=== PATIENT | female | born 1945 | race Caucasian/White ===

== ENCOUNTER → 2023-10-04 12:31 | Outpatient (REF) | payer MEDICARE, SELFPAY | LOC: RCS 12:31 | PROVIDERS: ATTENDING PHYSICIAN Nurse Practitioner Acute Care; FAMILY PHYSICIAN Family Medicine; OTHER PHYSICIAN Internal Medicine Cardiovascular Disease; OTHER PHYSICIAN Radiology Radiation Oncology | DX: C34.11 Malignant neoplasm of upper lobe, right bronchus or lung (principal); I71.60 Thoracoabdominal aortic aneurysm, without rupture, unspecified; I70.0 Atherosclerosis of aorta | CPT/HCPCS: 93306 ==

== ENCOUNTER → 2023-10-05 14:52 | Outpatient (REF) | payer MEDICARE, SELFPAY | LOC: RAD 14:52 | PROVIDERS: ATTENDING PHYSICIAN Radiology Radiation Oncology; FAMILY PHYSICIAN Family Medicine; OTHER PHYSICIAN Internal Medicine Cardiovascular Disease; OTHER PHYSICIAN Nurse Practitioner Acute Care | DX: C34.11 Malignant neoplasm of upper lobe, right bronchus or lung (principal); I10 Essential (primary) hypertension; I71.60 Thoracoabdominal aortic aneurysm, without rupture, unspecified; I70.0 Atherosclerosis of aorta | CPT/HCPCS: 71275; 74174; Q9967 ==

== ENCOUNTER 2023-10-14 16:50 | Emergency (ER) | payer MEDICARE, SELFPAY ==
[2023-10-14 16:59] VITALS: BP 120/89
[2023-10-14 17:22] VITALS: BP 120/63
[2023-10-14 17:23] VITALS: BMI 28.3
--- NOTE | 2023-10-14 17:58 | ED.GENMED ---
History of Present Illness
General
Chief Complaint: Breathing Problem
Time Seen by Provider: 10/14/23 17:58
Travel History
Have you had any contact with someone who has COVID-19?: No
Do you have any symptoms of coronavirus? Fever > 100 degrees, chills, cough, shortness of breath, sore throat, loss of taste or smell, muscle aches, or headache?: No
History of Present Illness
History of Present Illness:
HPI: Patient presents due to shortness of breath. She has a history of COPD. She is overdue for taking a breathing treatment. Of note she fell about 3 weeks ago and broke right sixth rib. She fell again yesterday as she lost her balance on a
step at home again injuring the right chest. She saw primary care FI[facility] SUPERVISOR/PA who sent her here for further evaluation. She normally uses oxygen only at nighttime. She also has a history of lung malignancy
EXAM:
GENERAL: Appears chronically ill and generally weak
HEENT: Moist oral mucosa
CARDIOVASCULAR: No murmurs, normal heart rate, regular rhythm, No chest wall tenderness
PULMONARY: Minimal respiratory distress with mild conversational dyspnea, breath sounds are markedly decreased equally
ABDOMEN: Soft with no peritoneal signs, no tenderness
NEUROLOGIC: Excellent strength all extremities, no coordination deficits
PSYCHIATRIC: Appropriate mental status, normal insight and judgement
EXTREMITIES: Nontender, no edema, moves all extremities equally
SKIN: No rash, no lesions
TIME OF INITIAL ENCOUNTER: 6 PM
NUMBER AND COMPLEXITY OF PROBLEMS ADDRESSED AT THE ENCOUNTER
� Chronic conditions affecting care: COPD, lung cancer, thrombocytopenia, history of alcohol and drug abuse
� Acute Exacerbation and/or Progression of Chronic Illness: Acute exacerbation of COPD
� Differential Diagnosis includes: COPD exacerbation, pneumonia, worsening lung malignancy
AMOUNT AND/OR COMPLEXITY OF DATA TO BE REVIEWED AND ANALYZED
� I performed an independent evaluation of and my interpretation is:
EKG: Sinus 93, nonspecific ST abnormality
CT:
X-rays: I personally viewed the chest x-ray and see no new acute abnormality
Laboratory Studies: White count normal, hemoglobin normal, BNP, chemistries, troponin unremarkable
Other:
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 Normal sestamibi perfusion imaging 'complicated by
inferior soft tissue attenuation' noted 05/16/2023
� Clinical information was obtained by an independent historian: Spoke to the at bedside
� Prescriptions/Medications Considered but not given:
� Further testing considered but not performed:
RISK OF COMPLICATIONS AND/OR MORBIDITY OR MORTALITY OF PATIENT MANAGEMENT
� Social determinants of health affecting care: Lives at home
� Discussion with other providers:
� Escalation of care including admission/observation vs risk of discharge considered: The patient has markedly decreased breath sounds equally�she is given DuoNeb and steroids. She is more concerned about the breathing as
opposed to the fall. Chest x-ray shows no acute abnormality. The patient is currently on oxygen and does have oxygen at home. She does not appear to be in any significant distress but does have markedly decreased breath sounds. She will be
placed on steroids. I offered and considered admitting to the hospital if she has more high oxygen now with room air sats of 83 to 88% however there is no acute abnormality on the chest x-ray, she has oxygen at home, lab work is normal, and she
does not appear to be in any significant distress. I offered to keep her however the patient prefers to be managed as an outpatient which I feel is reasonable. She was given additional DuoNeb prior to discharge I did send a prescription for
steroids to her pharmacy
Past History
Past History
ED Past Medical History: CAD, COPD, HTN and Hypercholesterolemia
ED Past Surgical History: Cholecystectomy, Gynecological, Orthopedic and Other
Social History
Tobacco: Former smoker
Alcohol: None
Living: with family
Employment: Retired
Phy Exam
Physical Exam
Physical Exam:
See HPI
Scores
Heart Failure Risk
Heart Failure Risk Score: Not Applicable
Course
Orders/Labs/Results
Orders:
Orders
10/14/23 17:22
Electrocardiogram (*1) Urgent
Reason for Study: Shortness of Breath
EKG- Treatment ONCE
10/14/23 17:36
CR Chest Portable - 1 View Urgent
Comment:
Reason For Exam: SOB
Reason Study Needs to be Portable: Other
10/14/23 18:09
Ipratropium/Albuterol Sulfate [Duoneb] 3 ml INH R NOW ONE
MethylPREDNISolone PF [Solu-Medrol Pf] 125 mg IV NOW STA
10/14/23 18:18
Basic Metabolic Panel Urgent
Complete Blood Count/With Diff Urgent
Magnesium Urgent
NT-proBNP Urgent
Troponin I Urgent
10/14/23 19:05
Ipratropium/Albuterol Sulfate [Duoneb] 3 ml INH R NOW ONE
Abnormal Lab Results
10/14/23
18:18
RBC 3.89 L 10^6/uL
(4.20-5.40)
Hct 36.1 L %
(37.0-47.0)
MCH 31.1 H pg
(27.0-31.0)
Plt Count 104 L 10^3/uL
(130-400)
MPV 11.8 H fL
(7.4-10.4)
Absolute Lymphs (auto) 1.0 L 10^3/uL
(1.2-3.4)
Absolute Monos (auto) 0.8 H 10^3/uL
(0.1-0.6)
Lymphocytes % 13.9 L %
(20.5-51.1)
Monocytes % 11.1 H %
(1.7-9.3)
Carbon Dioxide 31 H mmol/L
(22-30)
Glucose 106 H mg/dl
(70-99)
10/14/23 18:18
10/14/23 18:18
Vital Signs
Initial and Last Documented VS:
Initial Vital Signs
Temp Pulse Resp BP Pulse Ox
98.1 F 90 18 120/89 85
10/14/23 16:59 10/14/23 16:59 10/14/23 16:59 10/14/23 16:59 10/14/23 16:59
Last Documented Vital Signs
Temp Pulse Resp BP Pulse Ox
98.1 F 104 20 116/62 91
10/14/23 16:59 10/14/23 19:04 10/14/23 19:04 10/14/23 18:00 10/14/23 19:04
*Critical Care Note
Total Time (30-74mins, 75-104mins- exclusive of procedures): Not Applicable
ED Attending Note
-
Portions of this chart may have been created with voice recognition software.� Occasional wrong word or��sound alike� substitutions may have occurred due to the inherent limitations of voice recognition software.
Discharge Plan
Departure
Patient Disposition: Home (Routine Discharge)
Date of Disposition: 10/14/23
Time of Disposition: 19:06
Patient with high blood pressure during this ER visit?: Yes
Discharge Problem:
COPD exacerbation
Prescriptions:
New
prednisone 50 mg tablet
50 mg PO DAILY Qty: 4 0RF
No Action
trazodone 50 MG tablet
50 mg PO HSPRN PRN (Reason: sleep)
fluticasone propionate 1 SPRAY spray,suspension
2 spray intranasal DAILYPRN PRN (Reason: allergies)
ipratropium bromide 0.5 MG/2.5 ML solution
0.5 mg inhalation R QID
rosuvastatin 5 MG tablet
5 mg PO DAILY
budesonide 0.5 MG/2 ML suspension for nebulization
0.5 mg inhalation R BID
PreserVision AREDS-2 1 EACH capsule
1 ea PO BID Qty: 0 0RF
Rx Instructions:
resume 1 week
sertraline 100 MG tablet
150 mg PO DAILY
cyanocobalamin (vitamin B-12) 1,000 MCG tablet
1,000 mcg PO DAILY
aspirin 81 MG tablet,chewable
81 mg PO DAILY
metoprolol succinate 25 MG tablet extended release 24 hr
37.5 mg PO HS
Patient Comments:
1.5 tablets
multivitamin with folic acid [Tab-A-Lucinda] 1 TABLET tablet
1 tab PO DAILY
Activity Restrictions/Additional Instructions:
Since your oxygen levels are low here, I recommend that you use the oxygen more frequently at home including in the daytime and not only at nighttime. Your basic lab work including cardiac numbers are normal. Chest x-ray shows no acute
abnormality. I suspect your symptoms are related to a COPD exacerbation. I recommend resuming steroids�I sent next dose of steroids to your pharmacy. Continue using DuoNebs at home. Return here if worse.
Interventions
Interventions:
*Risk Screen - Suicide Last Done: 10/14/23 17:23
*General Assessment Last Done: 10/14/23 17:23
*Neglect/Abuse Screening Last Done: 10/14/23 17:20
ED- Fall Risk Assessment Last Done: 10/14/23 17:25
*ED COVID-19 Vaccine History Last Done: 10/14/23 17:23
ED- Cardiac Assessment Last Done: 10/14/23 17:23
ED- Pulmonary Assessment Last Done: 10/14/23 17:23
Discharge Date and Time
Print Language: NIUEAN
[2023-10-14 18:00] VITALS: BP 116/62
[2023-10-14] MEDS: DUONEB 3 ML INH ×2 (18:15→19:13)
[2023-10-14] MEDS: SOLU-MEDROL PF 125 MG IV (18:16)
[2023-10-14 18:37] LABS: % Basophils 0.4 % (0-2); % Eosinophils 1.8 % (0-6); % Immature Granulocytes 0.4 % (0-0.5); % Lymphocytes 13.9 % (20.5-51.1); % Monocytes 11.1 % (1.7-9.3); % Neutrophils 72.4 % (42.2-75.2); Absolute Eosinophils 0.1 10^3/uL (0-0.7); Absolute Monocytes 0.8 10^3/uL (0.1-0.6); Absolute Neutrophils 5.2 10^3/uL (1.4-6.5); Hematocrit 36.1 % (37.0-47.0); Hemoglobin 12.1 g/dL (12.0-16.0); Mean Corp Hgb Conc. 33.5 g/dL (33.0-37.0); Mean Corpuscular Hgb 31.1 pg (27.0-31.0); Mean Corpuscular Volume 92.8 fL (81.0-99.0); Mean Platelet Volume 11.8 fL (7.4-10.4); Nucleated Red Blood Cells % 0 %; Platelet Count 104 10^3/uL (130-400); Red Blood Cell Count 3.89 10^6/uL (4.20-5.40); White Blood Cell Count 7.2 10^3/uL (4.8-10.8)
[2023-10-14 18:52] LABS: Blood Urea Nitrogen 17 mg/dl (7-17); Carbon Dioxide 31 mmol/L (22-30); Chloride 98 mmol/L (98-107); Estimated Creatinine Clearance 79 ml/min; Glucose 106 mg/dl (70-99); Potassium 4.3 mmol/L (3.5-5.1); Sodium 137 mmol/L (135-145); eGFR > 60.00
[2023-10-14 18:55] LABS: NT-proBNP 272 pg/ml; Troponin I < 0.012 ng/ml
== END 2023-10-14 19:37 | disposition home or self-care (01) ==
LOC: EMR 16:50
PROVIDERS: EMERGENCY PHYSICIAN Emergency Medicine; FAMILY PHYSICIAN Family Medicine
DX: J44.1 Chronic obstructive pulmonary disease with (acute) exacerbation (principal); I10 Essential (primary) hypertension
CPT/HCPCS: 99285; 96374; 94640; 71045; 80048; 83735; 83880; 84484; 85025; 93005

== ENCOUNTER → 2024-03-09 13:45 | Outpatient (REF) | payer MEDICARE, SELFPAY | LOC: WDC 13:45 | PROVIDERS: ATTENDING PHYSICIAN Nurse Practitioner Family | DX: Z12.31 Encounter for screening mammogram for malignant neoplasm of breast (principal) | CPT/HCPCS: 77063; 77067 ==

== ENCOUNTER 2024-04-09 06:33 | Day surgery (SDC) | payer MEDICARE, SELFPAY ==
[2024-03-29 10:54] VITALS: BMI 28.7
[2024-03-29 11:18] LABS: Hematocrit 39.3 % (37.0-47.0); Hemoglobin 12.8 g/dL (12.0-16.0); Mean Corp Hgb Conc. 32.6 g/dL (33.0-37.0); Mean Corpuscular Hgb 31.6 pg (27.0-31.0); Platelet Count 103 10^3/uL (130-400); Red Blood Cell Count 4.05 10^6/uL (4.20-5.40); Red Cell Dist. Width 13.4 % (11.5-14.5); White Blood Cell Count 4.8 10^3/uL (4.8-10.8)
[2024-03-29 11:31] LABS: INR 1.07; PT 13.9 Sec (11.4-14.6)
[2024-03-29 11:32] LABS: APTT 27.5 Sec (23.4-35.0)
[2024-03-29 11:53] LABS: Blood Urea Nitrogen 17 mg/dl (7-17); Calcium 9.7 mg/dl (8.4-10.2); Carbon Dioxide 33 mmol/L (22-30); Chloride 101 mmol/L (98-107); Estimated Creatinine Clearance 65 ml/min; Glucose 96 mg/dl (70-99); Potassium 4.1 mmol/L (3.5-5.1); Sodium 144 mmol/L (135-145); eGFR > 60.00
[2024-04-09 13:53] VITALS: BMI 28.7
[2024-04-09 13:57] VITALS: BP 102/55
[2024-04-09] MEDS: NORMOSOL-R/PLASMALYTE-A 1000 IV (14:03)
[2024-04-09 17:30] VITALS: BP 102/55; BP 109/74
[2024-04-09 17:31] VITALS: BP 109/74
[2024-04-09 17:45] VITALS: BP 120/95
[2024-04-09 18:15] VITALS: BP 114/91
--- NOTE | 2024-04-09 18:32 | SUR.PHASEI ---
patient in pacu post op dental work upper front of mouth. unable to keep ice to area and allow patient to breathe. COPD , uses O2 at home, talks continuously. vss. attempt to wean O2. sats intermittently drop to 89 - 90%. Reviewed to Dr Conti
- okay to send to [facility] with O2 and patient encouraged to use O2 at home this marvel. Per surgeon - patient is to leave dentures out, as no way to secure now. Patient able to teach back -
[2024-04-09 18:45] VITALS: BP 110/76
== END 2024-04-09 19:07 | disposition home or self-care (01) ==
LOC: SDS 06:33
PROVIDERS: ATTENDING PHYSICIAN Dentist Oral and Maxillofacial Surgery; FAMILY PHYSICIAN Family Medicine; OTHER PHYSICIAN Internal Medicine Cardiovascular Disease
PROC: 0CDXXZ1 Extraction of Lower Tooth, Multiple, External Approach (ICD-10-PCS; 2024-04-09)
PROC: 0CDWXZ1 Extraction of Upper Tooth, Multiple, External Approach (ICD-10-PCS; 2024-04-09)
PROC: 0NBR0ZZ Excision of Maxilla, Open Approach (ICD-10-PCS; 2024-04-09)
DX: K02.9 Dental caries, unspecified (principal)
CPT/HCPCS: 41874 ×2; 41899; 36415; 71046; 80048; 85027; 85610; 85730; 93005

== ENCOUNTER → 2024-06-01 13:04 | Outpatient (REF) | payer MEDICARE, SELFPAY | LOC: RAD 13:04 | PROVIDERS: ATTENDING PHYSICIAN Nurse Practitioner; FAMILY PHYSICIAN Family Medicine | DX: S09.90XS Unspecified injury of head, sequela (principal); R42 Dizziness and giddiness | CPT/HCPCS: 70450 ==

== ENCOUNTER → 2024-06-27 12:36 | Outpatient (REF) | payer MEDICARE, SELFPAY | LOC: RAD 12:36 | PROVIDERS: ATTENDING PHYSICIAN Family Medicine | DX: M79.671 Pain in right foot (principal) | CPT/HCPCS: 73630 ==

== ENCOUNTER → 2024-08-13 09:22 | Outpatient (REF) | payer MEDICARE, SELFPAY | LOC: HWRAD 09:22 | PROVIDERS: ATTENDING PHYSICIAN Internal Medicine; FAMILY PHYSICIAN Family Medicine | DX: F10.10 Alcohol abuse, uncomplicated (principal) | CPT/HCPCS: 76700 ==

== ENCOUNTER 2024-08-15 13:31 | Outpatient (RCR) | payer MEDICARE, SELFPAY | END 2024-08-15 23:59 | disposition home or self-care (01) | LOC: RPT 13:31 | PROVIDERS: ATTENDING PHYSICIAN Nurse Practitioner; FAMILY PHYSICIAN Family Medicine | DX: S09.90XD Unspecified injury of head, subsequent encounter (principal); X58.XXXD Exposure to other specified factors, subsequent encounter | CPT/HCPCS: 97162; 97530 ==

== ENCOUNTER 2024-08-24 10:21 | Outpatient (RCR) | payer MEDICARE, SELFPAY | END 2024-08-24 23:59 | disposition home or self-care (01) | LOC: RPT 10:21 | PROVIDERS: ATTENDING PHYSICIAN Student in an Organized Health Care Education/Training Program; FAMILY PHYSICIAN Family Medicine | DX: M77.9 Enthesopathy, unspecified (principal); M79.671 Pain in right foot; Z73.6 Limitation of activities due to disability; R26.89 Other abnormalities of gait and mobility; R26.2 Difficulty in walking, not elsewhere classified; M79.604 Pain in right leg | CPT/HCPCS: 97110; 97116; 97162; 97530 ==

== ENCOUNTER 2024-08-24 13:03 | Emergency (ER) | payer MEDICARE, SELFPAY ==
[2024-08-24 13:06] VITALS: BP 101/66
--- NOTE | 2024-08-24 15:08 | ED.GENMED ---
History of Present Illness
General
Chief Complaint: Fall
Source: patient
Exam Limitations: none
Time Seen by Provider: 08/24/24 13:37
Nursing documentation reviewed up to this point in time: agreed with
History of Present Illness
History of Present Illness:
78-year-old female presents emergency department after tripping and falling, and hitting her head on a curb. She also landed on her right knee. She denies loss of consciousness. She takes aspirin.
Past History
Past History
ED Past Medical History: CAD, COPD, HTN and Hypercholesterolemia
ED Past Surgical History: Cholecystectomy, Gynecological, Orthopedic and Other
Social History
Tobacco: Former smoker
Alcohol: None
Living: with family
Employment: Retired
Review of Systems
Review of Systems
Allergies reviewed?: Yes
All Other Systems: Not applicable
Constitutional: Reports no symptoms
EENT: Reports no symptoms
Respiratory: Reports no symptoms
Cardiac: Reports no symptoms
ABD/GI: Reports no symptoms
: Reports no symptoms
Musculoskeletal: Reports joint pain (Right knee pain)
Skin: Reports no symptoms
Neurological: Reports no symptoms
Endocrine: Reports no symptoms
Hematologic/Lymphatic: Reports no symptoms
Psychiatric: Reports no symptoms
Phy Exam
Physical Exam
Physical Exam:
Physical Exam
General: no apparent distress, not acutely ill
Neck: supple. no meningeal signs. normal posterior pharynx
Heart: s1/s2 regular rate and rhythm, no murmur. equal radial
pulses.
HEENT: Pupils equal round reactive to light, EOMI, contusion forehead
Lungs: no acute respiratory distress. clear bilaterally
Abdomen: normal bowel sounds. not tender. no CVAT
Neuro: alert and oriented. no focal neurological deficits cranial nerves II through XII intact
Skin: no rash
Psychiatric: well kept. interactive and cooperative
Extremities: no edema. no calf tenderness. negative homans. good distal pulses, abrasion right knee, mildly tender patella
Course
Orders/Labs/Results
Orders:
Orders
08/24/24 13:11
CT Head W/o Iv Contrast Urgent
Comment:
Reason For Exam: fall
08/24/24 13:55
Knee, Right 4 or More Views [CR Knee- Right 4 Or More View*] Urgent
Comment:
Reason For Exam: right knee pain after fall
Vital Signs
Initial and Last Documented VS:
Initial Vital Signs
Temp Pulse Resp BP Pulse Ox
98.5 F 85 18 101/66 94
08/24/24 13:06 08/24/24 13:06 08/24/24 13:06 08/24/24 13:06 08/24/24 13:06
Last Documented Vital Signs
Temp Pulse Resp BP Pulse Ox
98.5 F 85 18 101/66 94
08/24/24 13:06 08/24/24 13:06 08/24/24 13:06 08/24/24 13:06 08/24/24 13:06
MDM/Problems Addressed
Differential Diagnosis Includes:
Intracranial hemorrhage, knee fracture
MDM/Problems Addressed:
78-year-old female with fall, head contusion. Right knee abrasion. No signs of fracture or intracranial hemorrhage. Stable for discharge.
Chronic conditions affecting care: CAD and COPD
Acute Exacerbation and/or Progression of Chronic Illness: CAD and COPD
*Radiology
Radiology exam reviewed: radiology read reviewed (CT head no acute findings, right knee x-ray no acute findings)
*Pulse Oximetry
Patient hypoxic: no
*Critical Care Note
Total Time (30-74mins, 75-104mins- exclusive of procedures): Not Applicable
Patient Management
Social determinants of health affecting care: Living situation and Strong social support
Escalation/DeEscalation of care consider admission/obs:
Admission not indicated
ED Attending Note
-
Portions of this chart may have been created with voice recognition software.� Occasional wrong word or��sound alike� substitutions may have occurred due to the inherent limitations of voice recognition software.
Discharge Plan
Departure
Patient Disposition: Home (Routine Discharge)
Date of Disposition: 08/24/24
Time of Disposition: 15:15
Patient with high blood pressure during this ER visit?: No
Condition: Good
Discharge Problem:
Contusion of head, Abrasion of knee, right, Fall
Instructions: Head Injury in Adults (DC), Contusion (DC), Preventing falls in adults, Skin Abrasions (DC)
Prescriptions:
No Action
trazodone 50 MG tablet
50 mg PO HS
fluticasone propionate 1 SPRAY spray,suspension
2 spray intranasal DAILYPRN PRN (Reason: allergies)
ipratropium bromide 0.5 MG/2.5 ML solution
0.5 mg inhalation QID
rosuvastatin 5 MG tablet
5 mg PO DAILY
budesonide 0.5 MG/2 ML suspension for nebulization
0.5 mg inhalation BID
PreserVision AREDS-2 1 EACH capsule
1 ea PO BID Qty: 0 0RF
Rx Instructions:
resume 1 week
sertraline 100 MG tablet
150 mg PO DAILY
aspirin 81 MG tablet,chewable
81 mg PO DAILY
metoprolol succinate 25 MG tablet extended release 24 hr
37.5 mg PO HS
Patient Comments:
1.5 tablets
cyanocobalamin (vitamin B-12) [Vitamin B-12] 1,000 mcg Tablet
1,000 mcg PO DAILY
acetaminophen [Tylenol Extra Strength] 500 mg Capsule
500 mg PO Q6H PRN (Reason: pain)
One-A-Day Women's 50 Plus
1 cap PO DAILY
Oxygen 2.5l
2.5 l inhalation HS
Referrals:
Destiny Baires MD [Family Provider] - Call in 1-3 days for appt
Interventions
Interventions:
*Risk Screen - Suicide Last Done: 08/24/24 13:06
*General Assessment Last Done: 08/24/24 13:06
*Neglect/Abuse Screening Last Done: 08/24/24 13:06
ED-Musculoskeletal Assessment Last Done: 08/24/24 14:25
ED- Neurological Assessment Last Done: 08/24/24 14:25
ED-Skin Assessment Last Done: 08/24/24 14:25
Discharge Date and Time
Print Language: CAMBODIAN
== END 2024-08-24 15:40 | disposition home or self-care (01) ==
LOC: EMR 13:03
PROVIDERS: EMERGENCY PHYSICIAN Emergency Medicine; FAMILY PHYSICIAN Family Medicine
DX: S00.93XA Contusion of unspecified part of head, initial encounter (principal); S80.211A Abrasion, right knee, initial encounter; W01.198A Fall on same level from slipping, tripping and stumbling with subsequent striking against other object, initial encounter; E78.00 Pure hypercholesterolemia, unspecified; I10 Essential (primary) hypertension; I25.10 Atherosclerotic heart disease of native coronary artery without angina pectoris; J44.9 Chronic obstructive pulmonary disease, unspecified; Z79.82 Long term (current) use of aspirin; Z87.891 Personal history of nicotine dependence
CPT/HCPCS: 99284; 70450; 73564

== ENCOUNTER → 2024-09-14 08:29 | Outpatient (REF) | payer MEDICARE, SELFPAY ==
[2024-09-14 09:53] LABS: Blood Urea Nitrogen 17 mg/dl (7-17); Calcium 9.8 mg/dl (8.4-10.2); Carbon Dioxide 31 mmol/L (22-30); Chloride 102 mmol/L (98-107); Glucose 98 mg/dl (70-99); Sodium 141 mmol/L (135-145); eGFR > 60.00
== END ==
LOC: REG 08:29
PROVIDERS: ATTENDING PHYSICIAN Surgery Vascular Surgery; FAMILY PHYSICIAN Family Medicine
DX: I71.40 Abdominal aortic aneurysm, without rupture, unspecified (principal)
CPT/HCPCS: 36415; 80048

== ENCOUNTER → 2024-09-24 11:15 | Outpatient (REF) | payer MEDICARE, SELFPAY | LOC: RAD 11:15 | PROVIDERS: ATTENDING PHYSICIAN Surgery Vascular Surgery; FAMILY PHYSICIAN Family Medicine; OTHER PHYSICIAN Internal Medicine Cardiovascular Disease | DX: I71.40 Abdominal aortic aneurysm, without rupture, unspecified (principal); I70.0 Atherosclerosis of aorta; I71.20 Thoracic aortic aneurysm, without rupture, unspecified | CPT/HCPCS: 71275; 74174; Q9967 ==

== ENCOUNTER 2024-10-15 13:17 | Outpatient (RCR) | payer MEDICARE, SELFPAY | END 2024-10-15 23:59 | disposition home or self-care (01) | LOC: RPT 13:17 | PROVIDERS: ATTENDING PHYSICIAN Student in an Organized Health Care Education/Training Program; FAMILY PHYSICIAN Family Medicine | DX: M77.9 Enthesopathy, unspecified (principal); M79.671 Pain in right foot; Z73.6 Limitation of activities due to disability; R26.89 Other abnormalities of gait and mobility; R26.2 Difficulty in walking, not elsewhere classified; M79.604 Pain in right leg; M62.81 Muscle weakness (generalized); R29.6 Repeated falls | CPT/HCPCS: 97110; 97112 ==

== ENCOUNTER 2024-11-02 12:50 | Outpatient (RCR) | payer MEDICARE, SELFPAY | END 2024-11-02 23:59 | disposition home or self-care (01) | LOC: RPT 12:50 | PROVIDERS: ATTENDING PHYSICIAN Student in an Organized Health Care Education/Training Program; FAMILY PHYSICIAN Family Medicine | DX: M77.9 Enthesopathy, unspecified (principal); M79.671 Pain in right foot; Z73.6 Limitation of activities due to disability; R26.89 Other abnormalities of gait and mobility; R26.2 Difficulty in walking, not elsewhere classified; M79.604 Pain in right leg; R29.6 Repeated falls; M62.81 Muscle weakness (generalized) | CPT/HCPCS: 97110; 97112 ==

== ENCOUNTER 2024-12-06 12:47 | Outpatient (RCR) | payer MEDICARE, SELFPAY | END 2024-12-06 23:59 | disposition home or self-care (01) | LOC: RPT 12:47 | PROVIDERS: ATTENDING PHYSICIAN Student in an Organized Health Care Education/Training Program; FAMILY PHYSICIAN Family Medicine | DX: M77.9 Enthesopathy, unspecified (principal); M79.671 Pain in right foot; Z73.6 Limitation of activities due to disability; R26.89 Other abnormalities of gait and mobility; R26.2 Difficulty in walking, not elsewhere classified; M79.604 Pain in right leg; M62.81 Muscle weakness (generalized); R29.6 Repeated falls | CPT/HCPCS: 97110; 97112; 97530 ==

== ENCOUNTER 2024-12-12 06:11 | Day surgery (SDC) | payer MEDICARE, SELFPAY ==
[2024-12-12 08:02] VITALS: BMI 23.9
[2024-12-12 08:03] VITALS: BMI 23.9
[2024-12-12 08:19] VITALS: BP 136/73
[2024-12-12 10:53] VITALS: BP 108/66
[2024-12-12 11:01] VITALS: BP 111/69
[2024-12-12 11:11] VITALS: BP 116/49
== END 2024-12-12 11:25 | disposition home or self-care (01) ==
LOC: GI 06:11
PROVIDERS: ATTENDING PHYSICIAN Internal Medicine
DX: Z12.11 Encounter for screening for malignant neoplasm of colon (principal); D12.0 Benign neoplasm of cecum; D12.2 Benign neoplasm of ascending colon; D12.5 Benign neoplasm of sigmoid colon; K63.89 Other specified diseases of intestine; K57.30 Diverticulosis of large intestine without perforation or abscess without bleeding; K62.1 Rectal polyp; K92.1 Melena; K44.9 Diaphragmatic hernia without obstruction or gangrene; K31.7 Polyp of stomach and duodenum; K31.811 Angiodysplasia of stomach and duodenum with bleeding; K22.70 Barrett's esophagus without dysplasia; K29.70 Gastritis, unspecified, without bleeding; D13.2 Benign neoplasm of duodenum; K22.89 Other specified disease of esophagus; K31.89 Other diseases of stomach and duodenum; Z86.0101 Personal history of adenomatous and serrated colon polyps
CPT/HCPCS: 45385; 45380; 43239; 88305; 88342

== ENCOUNTER 2025-01-14 13:20 | Outpatient (RCR) | payer MEDICARE, SELFPAY | END 2025-01-14 23:59 | disposition home or self-care (01) | LOC: RPT 13:20 | PROVIDERS: ATTENDING PHYSICIAN Student in an Organized Health Care Education/Training Program; FAMILY PHYSICIAN Family Medicine | DX: M77.9 Enthesopathy, unspecified (principal); M79.671 Pain in right foot; Z73.6 Limitation of activities due to disability; R26.89 Other abnormalities of gait and mobility; R26.2 Difficulty in walking, not elsewhere classified; M79.604 Pain in right leg; M62.81 Muscle weakness (generalized); R29.6 Repeated falls | CPT/HCPCS: 97110; 97112; 97116; 97530 ==

== ENCOUNTER 2025-02-07 12:15 | Outpatient (RCR) | payer MEDICARE, SELFPAY | END 2025-02-07 23:59 | disposition home or self-care (01) | LOC: RPT 12:15 | PROVIDERS: ATTENDING PHYSICIAN Student in an Organized Health Care Education/Training Program; FAMILY PHYSICIAN Family Medicine | DX: M77.9 Enthesopathy, unspecified (principal); M79.671 Pain in right foot; Z73.6 Limitation of activities due to disability; R26.89 Other abnormalities of gait and mobility; R26.2 Difficulty in walking, not elsewhere classified; M79.604 Pain in right leg; M62.81 Muscle weakness (generalized); R29.6 Repeated falls | CPT/HCPCS: 97110; 97116; 97530 ==

== ENCOUNTER → 2025-02-21 14:30 | Outpatient (REF) | payer MEDICARE, SELFPAY | LOC: MRI 14:30 | PROVIDERS: ATTENDING PHYSICIAN Internal Medicine; FAMILY PHYSICIAN Family Medicine | DX: F10.20 Alcohol dependence, uncomplicated (principal); K76.0 Fatty (change of) liver, not elsewhere classified; D69.6 Thrombocytopenia, unspecified | CPT/HCPCS: 74183; 76391; A9575 ==

== ENCOUNTER 2025-03-06 13:08 | Outpatient (RCR) | payer MEDICARE, SELFPAY | END 2025-03-06 23:59 | disposition home or self-care (01) | LOC: RPT 13:08 | PROVIDERS: ATTENDING PHYSICIAN Student in an Organized Health Care Education/Training Program; FAMILY PHYSICIAN Family Medicine | DX: M77.9 Enthesopathy, unspecified (principal); M79.671 Pain in right foot; Z73.6 Limitation of activities due to disability; R26.89 Other abnormalities of gait and mobility; R26.2 Difficulty in walking, not elsewhere classified; M79.604 Pain in right leg; M62.81 Muscle weakness (generalized); R29.6 Repeated falls | CPT/HCPCS: 97110; 97112; 97530 ==

== ENCOUNTER → 2025-03-12 12:09 | Outpatient (REF) | payer MEDICARE, SELFPAY | LOC: WDC 12:09 | PROVIDERS: ATTENDING PHYSICIAN Family Medicine | DX: Z12.31 Encounter for screening mammogram for malignant neoplasm of breast (principal) | CPT/HCPCS: 77063; 77067 ==

== ENCOUNTER 2025-03-29 06:05 | Day surgery (SDC) | payer MEDICARE, SELFPAY ==
[2025-03-29 07:17] VITALS: BMI 26.7
[2025-03-29 07:18] VITALS: BP 142/80
[2025-03-29 08:26] VITALS: BP 103/58
[2025-03-29 08:30] VITALS: BP 101/49
[2025-03-29 08:45] VITALS: BP 118/64
[2025-03-29 08:55] VITALS: BP 117/60
[2025-03-29 09:00] VITALS: BP 117/60
== END 2025-03-29 09:00 | disposition home or self-care (01) ==
LOC: SDS 06:05
PROVIDERS: ATTENDING PHYSICIAN Internal Medicine
DX: D13.2 Benign neoplasm of duodenum (principal); K31.89 Other diseases of stomach and duodenum; K44.9 Diaphragmatic hernia without obstruction or gangrene
CPT/HCPCS: 43239; 88305; 88342

== ENCOUNTER 2025-04-15 14:29 | Outpatient (RCR) | payer MEDICARE, SELFPAY | END 2025-04-15 23:59 | disposition home or self-care (01) | LOC: ROT 14:29 | PROVIDERS: ATTENDING PHYSICIAN Nurse Practitioner; FAMILY PHYSICIAN Family Medicine | DX: F10.27 Alcohol dependence with alcohol-induced persisting dementia (principal); Z73.6 Limitation of activities due to disability; R26.89 Other abnormalities of gait and mobility | CPT/HCPCS: 97167; 97530; 97535 ==

== ENCOUNTER 2025-05-17 08:38 | Outpatient (RCR) | payer MEDICARE, SELFPAY | END 2025-05-17 23:59 | disposition home or self-care (01) | LOC: ROT 08:38 | PROVIDERS: ATTENDING PHYSICIAN Nurse Practitioner; FAMILY PHYSICIAN Family Medicine | DX: F10.27 Alcohol dependence with alcohol-induced persisting dementia (principal); Z73.6 Limitation of activities due to disability; R26.89 Other abnormalities of gait and mobility | CPT/HCPCS: 97530; 97535 ==

== ENCOUNTER → 2025-05-24 09:39 | Outpatient (REF) | payer MEDICARE, SELFPAY ==
[2025-05-24 11:40] LABS: Blood Urea Nitrogen 17 mg/dl (7-17); Calcium 9.2 mg/dl (8.4-10.2); Carbon Dioxide 33 mmol/L (22-30); Chloride 101 mmol/L (98-107); Glucose 99 mg/dl (70-99); Potassium 4.7 mmol/L (3.5-5.1); Sodium 140 mmol/L (135-145); eGFR > 60.00
== END ==
LOC: REG 09:39
PROVIDERS: ATTENDING PHYSICIAN Surgery Vascular Surgery; FAMILY PHYSICIAN Family Medicine; REFERRING PHYSICIAN Internal Medicine Cardiovascular Disease
DX: I71.40 Abdominal aortic aneurysm, without rupture, unspecified (principal)
CPT/HCPCS: 36415; 80048

== ENCOUNTER → 2025-05-28 14:09 | Outpatient (REF) | payer MEDICARE, SELFPAY | LOC: HWRAD 14:09 | PROVIDERS: ATTENDING PHYSICIAN Nurse Practitioner; FAMILY PHYSICIAN Family Medicine | DX: S09.90XD Unspecified injury of head, subsequent encounter (principal) | CPT/HCPCS: 70450 ==

== ENCOUNTER 2025-06-03 13:51 | Outpatient (RCR) | payer MEDICARE, SELFPAY | END 2025-06-03 23:59 | disposition home or self-care (01) | LOC: ROT 13:51 | PROVIDERS: ATTENDING PHYSICIAN Nurse Practitioner; FAMILY PHYSICIAN Family Medicine | DX: F10.27 Alcohol dependence with alcohol-induced persisting dementia (principal); Z73.6 Limitation of activities due to disability; R26.89 Other abnormalities of gait and mobility | CPT/HCPCS: 97530; 97535 ==

== ENCOUNTER 2025-06-16 07:17 | Emergency (ER) | payer MEDICARE, SELFPAY ==
[2025-06-16] VITALS (8 sets, daily range): BP systolic 64–146; BP diastolic 43–110
[2025-06-16 07:44] LABS: Hematocrit 38.1 % (37.0-47.0); Hemoglobin 12.0 g/dL (12.0-16.0); Mean Corp Hgb Conc. 31.5 g/dL (33.0-37.0); Mean Corpuscular Volume 96.0 fL (81.0-99.0); Nucleated Red Blood Cells % 0 %; Platelet Count 101 10^3/uL (130-400); Red Cell Dist. Width 13.2 % (11.5-14.5)
[2025-06-16 08:03] LABS: ALT (SGPT) 22 U/L (0-35); AST (SGOT) 26 U/L (14-36); Albumin 4.1 g/dl (3.5-5.0); Alkaline Phosphatase 89 U/L (38-126); Blood Urea Nitrogen 13 mg/dl (7-17); Calcium 8.6 mg/dl (8.4-10.2); Carbon Dioxide 33 mmol/L (22-30); Chloride 102 mmol/L (98-107); Glucose 109 mg/dl (70-99); Potassium 3.7 mmol/L (3.5-5.1); Sodium 137 mmol/L (135-145); Total Protein 6.6 g/dl (6.3-8.2); eGFR > 60.00
--- NOTE | 2025-06-16 09:28 | ED.GENMED ---
History of Present Illness
General
Chief Complaint: Fall
Source: patient and spouse
Exam Limitations: none
Time Seen by Provider: 06/16/25 07:47
Nursing documentation reviewed up to this point in time: agreed with
History of Present Illness
History of Present Illness:
The patient is a 79-year-old female with a past medical history of coronary artery disease and COPD who reports severe right sided lower rib pain after she slipped and fell in the bathroom yesterday. Patient reports that she thinks she hit her
right rib cage against the bathtub. She reports she has not hit her head. She denies headache and neck pain. She denies dizziness. Patient reports increased work of breathing since the fall. Patient's reports that the patient does use
oxygen, but generally just at nighttime. Patient reports she has some mild mid to lower right sided back pain from the fall as well. reports multiple falls over the last 2 weeks. Patient is not on any blood thinners. Patient denies
pelvic and hip pain.
Past History
Past History
ED Past Medical History: CAD, COPD, HTN and Hypercholesterolemia
ED Past Surgical History: Cholecystectomy, Gynecological, Orthopedic and Other
Social History
Tobacco: Former smoker
Alcohol: Chronic alcoholic
Drug: None
Living: with family
Employment: Retired
Family History
Family History: Other
Review of Systems
Review of Systems
Allergies reviewed?: Yes
All Other Systems: ROS reviewed and negative except as documented in HPI and ROS
Constitutional: Reports no symptoms
EENT: Reports no symptoms
Respiratory: Reports trouble breathing
Cardiac: Reports chest pain (Right-sided chest wall pain)
ABD/GI: Reports no symptoms
: Reports no symptoms
Musculoskeletal: Reports muscle stiffness and back pain
Skin: Reports no symptoms
Neurological: Reports no symptoms
Endocrine: Reports no symptoms
Hematologic/Lymphatic: Reports no symptoms
Psychiatric: Reports no symptoms
Phy Exam
Physical Exam
Physical Exam:
Physical Exam
General: Patient lying on left side, holding right rib cage. Looks slightly uncomfortable. Atraumatic appearing face and head
Neck: supple. Nontender C-spine
Heart: s1/s2 regular rate and rhythm, diffuse right chest wall tenderness. No specific vertebral spine tenderness
Lungs: no acute respiratory distress, diffuse wheezing
Abdomen: Questionable right upper quadrant tenderness. Abdomen is soft and nondistended. No rebound or guarding.
Neuro: alert and oriented. no focal neurological deficits
Skin: no rash
Psychiatric: well kept. interactive and cooperative
Extremities: Nontender upper and lower extremities. Nontender pelvis and hips.
Course
Orders/Labs/Results
Orders:
Orders
06/16/25 07:25
Ribs, Right 3 View W/PA Chest [CR Ribs-right 3 Vw W/pa Chest*] Urgent
Comment:
Reason For Exam: fall, right rib pain
06/16/25 07:33
Complete Blood Count/With Diff Urgent
Comprehensive Metabolic Panel Urgent
06/16/25 09:25
Ipratropium/Albuterol Sulfate [Duoneb] 3 ml INH R NOW ONE
06/16/25 09:26
Morphine Sulfate 4 mg IV NOW STA
Ondansetron Injectable [Zofran] 4 mg IV NOW STA
06/16/25 09:27
CT Pe/abd/pel W Urgent
Reason For Exam: SOB, RUQ pain, s/p fall
06/16/25 09:29
0.9% Sodium Chloride 500 ml [Nss] 500 ml IV BOLUS
06/16/25 12:02
Ipratropium/Albuterol Sulfate [Duoneb] 3 ml INH R NOW ONE
Abnormal Lab Results
06/16/25
07:33
RBC 3.97 L 10^6/uL
(4.20-5.40)
MCHC 31.5 L g/dL
(33.0-37.0)
Plt Count 101 L 10^3/uL
(130-400)
MPV 11.2 H fL
(7.4-10.4)
Absolute Lymphs (auto) 0.8 L 10^3/uL
(1.2-3.4)
Lymphocytes % 15.7 L %
(20.5-51.1)
Carbon Dioxide 33 H mmol/L
(22-30)
Glucose 109 H mg/dl
(70-99)
06/16/25 07:33
06/16/25 07:33
Vital Signs
Initial and Last Documented VS:
Initial Vital Signs
Temp Pulse Resp BP Pulse Ox
98.2 F 87 18 146/110 96
06/16/25 07:23 06/16/25 07:23 06/16/25 07:23 06/16/25 07:23 06/16/25 07:23
Last Documented Vital Signs
Temp Pulse Resp BP Pulse Ox
98.2 F 84 24 125/67 93
06/16/25 07:23 06/16/25 08:00 06/16/25 08:00 06/16/25 08:00 06/16/25 09:28
MDM/Problems Addressed
Differential Diagnosis Includes:
Closed rib fractures, pulmonary contusion, pneumothorax
MDM/Problems Addressed:
Patient presents with acute right sided rib cage pain and complaints of acute shortness of breath
Chronic conditions affecting care:
COPD
Acute Exacerbation and/or Progression of Chronic Illness:
Patient likely has acute exacerbation of COPD
Acute Exacerbation and/or Progression of Chronic Illness: COPD
*Radiology
Radiology exam reviewed: radiology read reviewed
*Pulse Oximetry
SaO2: 93
Nasal Cannula flow liters per minute: 2
Patient hypoxic: yes
Comment: 89% on 2 L when I am in the room evaluating the patient
*EKG
Interpreted by ED Provider?: NA
*Dial Lathe Operator Interpretation
Rate: normal
Interpretation: normal
Rhythm: sinus
*Critical Care Note
Total Time (30-74mins, 75-104mins- exclusive of procedures): 45 minutes
comment:
45 minutes of critical care given to the patient including frequent reassessments of her respiratory effort, reviewing her lab work, chest x-ray, CT report as well as speaking to trauma at [facility]
Data Reviewed
Review of Other/Old Records Reveals: Discharge Summary (Discharge summary reviewed from 2020 patient was admitted for shortness of breath due to COPD)
Source: patient and spouse
Patient Management
Social determinants of health affecting care: Living situation and Strong social support
Discussion with other providers: Other (Case discussed with Dr. Bosch from [facility] trauma)
Escalation/DeEscalation of care consider admission/obs:
Patient has multiple right-sided rib fractures. She will need to be admitted for pain control. Additionally, she is mildly hypoxic, which could be due to some component of COPD exacerbation. Patient is requesting transfer to [facility] since it is
close to her house.
ED Attending Note
-
Portions of this chart may have been created with voice recognition software.� Occasional wrong word or��sound alike� substitutions may have occurred due to the inherent limitations of voice recognition software.
Discharge Plan
Departure
Patient Disposition: Acute Care Hospital
Date of Disposition: 06/16/25
Time of Disposition: 12:40
Discharge Problem:
Closed fracture of multiple ribs of right side, Acute exacerbation of chronic obstructive pulmonary disease
Prescriptions:
No Action
trazodone 50 MG tablet
50 mg PO HS
fluticasone propionate 1 SPRAY spray,suspension
2 spray intranasal DAILYPRN PRN (Reason: allergies)
ipratropium bromide 0.5 MG/2.5 ML solution
0.5 mg inhalation QID
rosuvastatin 5 MG tablet
5 mg PO DAILY
budesonide 0.5 MG/2 ML suspension for nebulization
0.5 mg inhalation BID
PreserVision AREDS-2 1 EACH capsule
1 ea PO BID Qty: 0 0RF
Rx Instructions:
resume 1 week
sertraline 100 MG tablet
150 mg PO DAILY
aspirin 81 MG tablet,chewable
81 mg PO DAILY
metoprolol succinate 25 MG tablet extended release 24 hr
37.5 mg PO HS
Patient Comments:
1.5 tablets
cyanocobalamin (vitamin B-12) [Vitamin B-12] 1,000 mcg Tablet
1,000 mcg PO DAILY
acetaminophen [Tylenol Extra Strength] 500 mg Capsule
500 mg PO Q6H PRN (Reason: pain)
One-A-Day Women's 50 Plus
1 cap PO DAILY
Oxygen 2.5l
2.5 l inhalation HS
omeprazole 40 mg Capsule,Delayed Release(Dr/Ec)
40 mg PO DAILY
memantine 10 mg Tablet
10 mg PO BID
cholecalciferol (vitamin D3) [Vitamin D3] 50 mcg (2,000 unit) Tablet
50 mcg PO DAILY
biotin 1,000 mcg Tablet,Chewable
1,000 mcg PO DAILY
Referrals:
Destiny Baires MD [Family Provider, Family Practice]
Hospital Transfer
Other hospital: [facility]
I certify that the patient requires transfer: Yes
Discussed case with accepting physician: Dr. Bosch, trauma
Reason for transfer: specialties available
Interventions
Interventions:
*Risk Screen - Suicide Last Done: 06/16/25 07:25
*General Assessment Last Done: 06/16/25 07:25
*Neglect/Abuse Screening Last Done: 06/16/25 07:25
*ED COVID-19 Vaccine History Last Done: 06/16/25 07:24
*ED Influenza Vaccine History Last Done: 06/16/25 07:24
ED-Musculoskeletal Assessment Last Done: 06/16/25 07:25
ED- Neurological Assessment Last Done: 06/16/25 07:25
ED-Skin Assessment Last Done: 06/16/25 07:25
Discharge Date and Time
Print Language: CROATIAN
[2025-06-16] MEDS: MORPHINE SULFATE 4 MG IV (09:40)
[2025-06-16] MEDS: NSS 500 IV (09:40)
[2025-06-16] MEDS: DUONEB 3 ML INH ×2 (09:40→12:23)
[2025-06-16] MEDS: ZOFRAN 4 MG IV (09:40)
== END 2025-06-16 14:07 | disposition short-term general hospital (02) ==
LOC: EMR 07:17
PROVIDERS: EMERGENCY PHYSICIAN Emergency Medicine; FAMILY PHYSICIAN Family Medicine
DX: S22.41XA Multiple fractures of ribs, right side, initial encounter for closed fracture (principal); W01.0XXA Fall on same level from slipping, tripping and stumbling without subsequent striking against object, initial encounter; Y92.002 Bathroom of unspecified non-institutional (private) residence as the place of occurrence of the external cause; J44.1 Chronic obstructive pulmonary disease with (acute) exacerbation; I25.10 Atherosclerotic heart disease of native coronary artery without angina pectoris; I10 Essential (primary) hypertension; E78.00 Pure hypercholesterolemia, unspecified; Z79.82 Long term (current) use of aspirin; Z99.81 Dependence on supplemental oxygen; Z87.891 Personal history of nicotine dependence
CPT/HCPCS: 99291; 96374; 96375; 96361; 94640; 71101; 71275; 74177; 80053; 85025; Q9967

== ENCOUNTER → 2025-06-24 10:10 | Outpatient (REF) | payer OTHER, MEDICARE, SELFPAY ==
[2025-06-24 11:34] LABS: Hematocrit 33.6 % (37.0-47.0); Hemoglobin 10.5 g/dL (12.0-16.0); Mean Corp Hgb Conc. 31.3 g/dL (33.0-37.0); Mean Corpuscular Volume 100.3 fL (81.0-99.0); Nucleated Red Blood Cells % 0 %; Platelet Count 122 10^3/uL (130-400); Red Cell Dist. Width 13.5 % (11.5-14.5)
[2025-06-24 11:45] LABS: Blood Urea Nitrogen 19 mg/dl (7-17); Calcium 8.9 mg/dl (8.4-10.2); Chloride 101 mmol/L (98-107); Glucose 117 mg/dl (70-99); Potassium 4.2 mmol/L (3.5-5.1); Sodium 138 mmol/L (135-145); eGFR > 60.00
[2025-06-24 11:56] LABS: Carbon Dioxide 34 mmol/L (22-30)
== END ==
LOC: OLABP 10:10
PROVIDERS: ATTENDING PHYSICIAN Family Medicine
DX: S22.41XD Multiple fractures of ribs, right side, subsequent encounter for fracture with routine healing (principal); J44.9 Chronic obstructive pulmonary disease, unspecified; N30.90 Cystitis, unspecified without hematuria; Z86.79 Personal history of other diseases of the circulatory system; G89.11 Acute pain due to trauma; W19.XXXD Unspecified fall, subsequent encounter; F10.90 Alcohol use, unspecified, uncomplicated
CPT/HCPCS: 36415; 80048; 85025

== ENCOUNTER → 2025-07-03 10:29 | Outpatient (REF) | payer OTHER, MEDICARE, SELFPAY ==
[2025-07-03 12:38] LABS: ALT (SGPT) 38 U/L (0-35); AST (SGOT) 37 U/L (14-36); Albumin 3.6 g/dl (3.5-5.0); Alkaline Phosphatase 117 U/L (38-126); Blood Urea Nitrogen 17 mg/dl (7-17); Calcium 9.0 mg/dl (8.4-10.2); Carbon Dioxide 29 mmol/L (22-30); Chloride 101 mmol/L (98-107); Glucose 97 mg/dl (70-99); Potassium 4.8 mmol/L (3.5-5.1); Sodium 136 mmol/L (135-145); Total Protein 6.6 g/dl (6.3-8.2); eGFR > 60.00
== END ==
LOC: OLABP 10:29
PROVIDERS: ATTENDING PHYSICIAN Family Medicine
DX: S22.41XD Multiple fractures of ribs, right side, subsequent encounter for fracture with routine healing (principal); J44.9 Chronic obstructive pulmonary disease, unspecified; G89.11 Acute pain due to trauma; W19.XXXD Unspecified fall, subsequent encounter; N30.90 Cystitis, unspecified without hematuria; F10.90 Alcohol use, unspecified, uncomplicated; E78.00 Pure hypercholesterolemia, unspecified; R41.3 Other amnesia; Z99.81 Dependence on supplemental oxygen; K59.00 Constipation, unspecified; C34.90 Malignant neoplasm of unspecified part of unspecified bronchus or lung
CPT/HCPCS: 36415; 80053